=== PATIENT | male | born 1950 | race Caucasian/White ===

== ENCOUNTER 2017-11-18 22:14 | Inpatient (IN) | payer OTHER, BC ==
[~2017-11-18] VITALS: Ht 177.8 cm; Wt 98.6 kg
[~2017-11-18 22:14] MED LIST: AMLODIPINE BESYL5 MG PO; ASPIRIN EC325 MG PO; ATARAX,VISTARIL25 MG PO; DICLOFENAC SODI75 MG PO; DOCUSATE SODIU100 MG PO; IRON325 M1 PO; LIPITOR20 MG PO; MILK OF MAGNESI10 ML PO; NORVASC2.5 MG PO; OMEPRAZOLE20 MG PO; OXYCODONE HCL5 MG PO; TRAMADOL HCL50 MG PO; TRANSDERM-SCO1 PATCH TD; TYLENOL REGULA325 MG PO; VITAMIN C1000 M1 PO; VOLTAREN75 MG PO; ZOFRAN4 MG PO
[2017-11-19 07:20] VITALS: BP 122/73
[2017-11-19 13:05] VITALS: BP 134/80
[2017-11-19 15:53] VITALS: BP 134/75
[2017-11-19 18:11] VITALS: BP 127/77
[2017-11-19 20:24] VITALS: BP 123/71
[2017-11-20 00:10] VITALS: BP 144/82
[2017-11-20 04:29] VITALS: BP 144/74
[2017-11-20 08:21] VITALS: BP 126/61
[2017-11-20 09:19] LABS: HEMATOCRIT 36.5 % (38.0-50.0); MCV 92.2 FL (86-99)
[2017-11-20 09:27] LABS: HEMOGLOBIN 11.6 G/DL (12.5-16.6)
[2017-11-20] MEDS ORDERED: CELECOXIB200 MG PO (09:54)
[2017-11-20] MEDS ORDERED: ELIQUIS2.5 MG PO (09:54)
[2017-11-20] MEDS ORDERED: OXYCODONE HCL5 MG PO (09:54)
[2017-11-20 12:00] VITALS: BP 120/60
[2017-11-20 15:58] VITALS: BP 127/68
[2017-11-20 20:10] VITALS: BP 125/68
[2017-11-21 00:14] VITALS: BP 129/68
[2017-11-21 04:23] VITALS: BP 115/68
[2017-11-21 08:13] VITALS: BP 110/58
[2017-11-21 12:00] VITALS: BP 126/65
== END 2017-11-21 16:05 | DRG 470 ==
LOC: ENRESERV 22:14 → 2SOUTH 11-19 06:49 → 3WEST 11-19 12:48
PROVIDERS: Physician Assistant
PROC: 0SRD0J9 Replacement of Left Knee Joint with Synthetic Substitute, Cemented, Open Approach (ICD-10-PCS; principal; 2017-11-19)
DX: M17.12 Unilateral primary osteoarthritis, left knee (principal); M22.42 Chondromalacia patellae, left knee; I10 Essential (primary) hypertension; J45.909 Unspecified asthma, uncomplicated; K21.9 Gastro-esophageal reflux disease without esophagitis
CPT/HCPCS: 85014; 85018; 94799; C1713; J0131; J0690; J1170; J1885; J2250; J2405; J2765; J3010; J7050; J7120; L1820; S0020

== ENCOUNTER 2018-03-30 21:16 | Inpatient (IN) | payer OTHER, BC ==
[~2018-03-30] VITALS: Ht 177.8 cm; Wt 99.7 kg
[~2018-03-30 21:16] MED LIST changes: +CELECOXIB200 MG PO; +ELIQUIS2.5 MG PO; +LO-DOSE ASPIRIN81 M1 PO; +NEURONTIN100 MG PO; +ULTRAM50 MG PO
[2018-03-31 08:02] VITALS: BP 134/76
[2018-03-31 15:01] VITALS: BP 127/74
[2018-03-31 20:12] VITALS: BP 135/77
[2018-03-31 23:50] VITALS: BP 120/72
[2018-04-01 03:49] VITALS: BP 98/56
[2018-04-01 06:26] LABS: CHLORIDE 107 MEQ/L (99-109); CREATININE 1.1 MG/DL (0.6-1.3); GFR ESTIMATE (CALCULATED) > 59 mL/min/ (58.99-99999); GLUCOSE 111 mg/dL (70-99); POTASSIUM 4.5 MEQ/L (3.7-5.4); SODIUM 138 MEQ/L (136-147); UREA NITROGEN (BUN) 30 mg/dL (9-23)
[2018-04-01 07:41] VITALS: BP 118/59
[2018-04-01] MEDS ORDERED: CELECOXIB200 MG PO (08:38)
[2018-04-01] MEDS ORDERED: OXYCODONE HCL5 MG PO (08:38)
[2018-04-01] MEDS ORDERED: ELIQUIS2.5 MG PO (08:38)
[2018-04-01 12:04] VITALS: BP 113/57
[2018-04-01 15:35] VITALS: BP 110/63
[2018-04-01 19:44] VITALS: BP 115/65
[2018-04-01 23:34] VITALS: BP 118/64
[2018-04-02 04:13] VITALS: BP 123/71
[2018-04-02 08:00] VITALS: BP 109/60
[2018-04-02 12:10] VITALS: BP 131/64
== END 2018-04-02 14:00 | DRG 470 ==
LOC: ENRESERV 21:16 → 2SOUTH 03-31 06:57 → 3WEST 03-31 14:42 → 2SOUTH 03-31 14:50 → 3WEST 04-02 14:00
PROVIDERS: Orthopaedic Surgery
PROC: 0SRC0J9 Replacement of Right Knee Joint with Synthetic Substitute, Cemented, Open Approach (ICD-10-PCS; principal; 2018-03-31)
DX: M17.11 Unilateral primary osteoarthritis, right knee (principal); M65.9 Synovitis and tenosynovitis, unspecified
CPT/HCPCS: 80048; 82948; C1713; J0330; J0690; J1100; J1885; J2250; J2405; J2795; J7050; J7120; L1820; Q0177; S0020